=== PATIENT | female | born 1950 | race Caucasian/White ===

== ENCOUNTER 2021-04-23 11:19 | Inpatient (IN) | payer MEDICARE ==
[~2021-04-23] VITALS: Ht 167.6 cm; Wt 60.8 kg
--- NOTE | 2021-04-23 11:25 | NUR ---
pt arrived from [facility]. upon arrival she is wearing a non-rebreather at 8 l/hr. heparin is infusin into a piv at a rate of 12 units/kg/hr.
--- NOTE | 2021-04-23 11:25 | NUR ---
per ptand [facility], [facility] 69.[facility] kg [facility]
--- NOTE | 2021-04-23 11:30 | NUR ---
ERP AT BS FOR EVAL
--- NOTE | 2021-04-23 11:46 | NUR ---
TRAFFIC OFFICER AT FOR EVAL
[2021-04-23] MEDS ORDERED: SIMV20TA19 PO (11:52)
[2021-04-23] MEDS ORDERED: LEVO75TA5 PO (11:53)
[2021-04-23] MEDS ORDERED: PLEASE ENTER HEIGHT AND WEIGHT MC SCH (12:00)
[2021-04-23 12:06] LABS: BASOPHILS % (AUTO) 1 % (0-1); EOSINOPHILS % (AUTO) 0 % (1-7); LYMPHOCYTES % (AUTO) 11 % (22-44); MEAN CORPUSCULAR HEMOGLOBIN 32.5 pg (27.0-34.8); MEAN CORPUSCULAR HGB CONC 34.1 g/dL (32.4-35.8); MEAN PLATELET VOLUME 9.1 fL (7.4-10.4); MONOCYTES % (AUTO) 7 % (2-9); NEUTROPHILS % (AUTO) 81 % (42-75); PLATELET COUNT 302 x10^3/uL (130-400); RED CELL DISTRIBUTION WIDTH 14.1 % (9.6-15.2)
--- NOTE | 2021-04-23 12:09 | NUR ---
verbal sbar was exchanged w carlos AYALA) on the floor for admission. we will begin to prepare for transport at this time.
[2021-04-23 12:16] LABS: ANION GAP 7 mmol/L (5-15); CALCIUM 8.1 mg/dL (8.5-10.1); CHLORIDE 105 mmol/L (98-107); CREATININE 0.56 mg/dL (0.55-1.02)
[2021-04-23 12:17] LABS: INTERNATIONAL NORMALIZED RATIO 1.06 (0.93-1.1); PROTHROMBIN TIME 11.3 Seconds (9.6-11.5)
[2021-04-23] MEDS ORDERED: HEPARIN 5,000 UNITS/ML, 1ML IV ONE (12:30)
[2021-04-23] MEDS ORDERED: HEPARIN 25,000 UNITS/250ML PMX 250 ML IV PRN (12:30)
[2021-04-23] MEDS ORDERED: HEPARIN 5,000 UNITS/ML, 1ML IV PRN (12:30)
[2021-04-23 13:11] VITALS: BP 117/82
[2021-04-23 13:26] VITALS: BP 117/82
[2021-04-23] MEDS: SODIUM CHLORIDE 0.9% 1,000 ML IV SCH (16:57)
[2021-04-23 19:07] VITALS: BP 96/65
[2021-04-23] MEDS: ATORVASTATIN 80 MG TABLET PO SCH (20:22)
[2021-04-23 23:44] VITALS: BP 104/72
[2021-04-24 02:16] LABS: BASOPHILS % (AUTO) 1 % (0-1); EOSINOPHILS % (AUTO) 1 % (1-7); LYMPHOCYTES % (AUTO) 21 % (22-44); MEAN CORPUSCULAR HEMOGLOBIN 32.7 pg (27.0-34.8); MEAN CORPUSCULAR HGB CONC 34.5 g/dL (32.4-35.8); MEAN PLATELET VOLUME 9.2 fL (7.4-10.4); MONOCYTES % (AUTO) 11 % (2-9); NEUTROPHILS % (AUTO) 66 % (42-75); PLATELET COUNT 226 x10^3/uL (130-400); RED BLOOD COUNT 3.91 x10^6/uL (3.82-5.3); RED CELL DISTRIBUTION WIDTH 14.1 % (9.6-15.2)
[2021-04-24 02:27] LABS: ANION GAP 6 mmol/L (5-15); CALCIUM 8.2 mg/dL (8.5-10.1); CHLORIDE 107 mmol/L (98-107); CHOLESTEROL, TOTAL 185 mg/dL (140-239); TRIGLYCERIDES 84 mg/dL (50-200); VLDL CHOLESTEROL 17 mg/dL (0-25)
[2021-04-24 02:29] LABS: CHOL/HDL RATIO 1.8; HDL CHOL % 56 % (28-40); HDL CHOLESTEROL (DIRECT) 103 mg/dL (40-60); LDL CHOLESTEROL,CALCULATED 65 mg/dL (54-169); LDL/HDL RATIO 0.6 (0.5-3.0)
[2021-04-24] MEDS: SODIUM CHLORIDE 0.9% 1,000 ML IV SCH ×5 (06:04→22:37)
[2021-04-24] MEDS: ASPIRIN 81 MG TABLET CHEW PO SCH (06:04)
[2021-04-24 06:42] VITALS: BP 100/66
[2021-04-24] MEDS ORDERED: POTASSIUM CHLORIDE 20 MEQ TAB.ER.PRT PO ONE (07:00)
[2021-04-24] MEDS ORDERED: POTASSIUM CHLORIDE 40 MEQ in SODIUM CHLORIDE 0.9% 500 ML IV ONE (07:00)
[2021-04-24] MEDS ORDERED: VERAPAMIL 2.5 MG/ML, 2ML ONE (11:17)
[2021-04-24] MEDS ORDERED: LIDOCAINE-MPF 1%, 5ML ONE (11:17)
[2021-04-24] MEDS ORDERED: MIDAZOLAM 1 MG/ML, 5ML ONE (11:17)
[2021-04-24] MEDS ORDERED: FENTANYL PF 100 MCG/2ML ONE (11:17)
[2021-04-24] MEDS ORDERED: BIVALIRUDIN 250 MG ONE (11:21)
[2021-04-24 14:58] VITALS: BP 100/61
[2021-04-24 18:58] VITALS: BP 98/65
[2021-04-24] MEDS: ATORVASTATIN 80 MG TABLET PO SCH (20:28)
[2021-04-25 04:03] VITALS: BP 123/84
[2021-04-25 04:15] VITALS: BP 123/84
[2021-04-25] MEDS: ASPIRIN 81 MG TABLET CHEW PO SCH (05:57)
[2021-04-25 06:06] LABS: ANION GAP 6 mmol/L (5-15); CALCIUM 8.4 mg/dL (8.5-10.1); CHLORIDE 111 mmol/L (98-107)
[2021-04-25 06:07] LABS: CREATININE 0.45 mg/dL (0.55-1.02)
[2021-04-25] MEDS ORDERED: SODIUM CHLORIDE NASAL SPRAY 45ML BOTTLE NAS PRN (06:30)
[2021-04-25 06:50] VITALS: BP 109/73
[2021-04-25] MEDS ORDERED: POTASSIUM CHLORIDE 20 MEQ TAB.ER.PRT PO ONE (07:00)
[2021-04-25] MEDS ORDERED: LEVOTHYROXINE 75 MCG TABLET PO SCH (09:00)
[2021-04-25] MEDS ORDERED: CARVEDILOL 3.125 MG TABLET PO SCH (10:00)
[2021-04-25] MEDS ORDERED: CLOPIDOGREL 75 MG TABLET PO SCH (10:00)
[2021-04-25] MEDS: SODIUM CHLORIDE 0.9% 1,000 ML IV SCH (10:33)
[2021-04-25] MEDS ORDERED: ATOR-2 PO (12:00)
[2021-04-25] MEDS ORDERED: CLOP75TA PO (12:00)
[2021-04-25] MEDS ORDERED: ASPI-963 PO (12:00)
[2021-04-25] MEDS ORDERED: METO25TA91 PO (12:00)
[2021-04-25 12:30] VITALS: BP 123/78
[2021-04-25] MEDS ORDERED: METOPROLOL SUCCINATE 25 MG TAB.ER.24H PO SCH (21:00)
== END 2021-04-25 14:40 | disposition home or self-care (01) | DRG 280 ==
LOC: SUATTDRO 11:32 → ED 11:38 → EDIP 12:21 → 5SO 12:40 → DCLOUNGE 04-25 14:23 → UNDODISIN 04-25 14:40
PROVIDERS: ADMIT Family Medicine; ATTEND Family Medicine
PROC: 4A023N7 Measurement of Cardiac Sampling and Pressure, Left Heart, Percutaneous Approach (ICD-10-PCS; principal; 2021-04-24)
PROC: B2111ZZ Fluoroscopy of Multiple Coronary Arteries using Low Osmolar Contrast (ICD-10-PCS; 2021-04-24)
PROC: B2151ZZ Fluoroscopy of Left Heart using Low Osmolar Contrast (ICD-10-PCS; 2021-04-24)
DX: I51.81 Takotsubo syndrome (principal); I21.A1 Myocardial infarction type 2; J96.91 Respiratory failure, unspecified with hypoxia; I50.21 Acute systolic (congestive) heart failure; I95.9 Hypotension, unspecified; E03.9 Hypothyroidism, unspecified; E78.5 Hyperlipidemia, unspecified; E87.6 Hypokalemia; F17.210 Nicotine dependence, cigarettes, uncomplicated; Z91.018 Allergy to other foods; Z79.899 Other long term (current) drug therapy; Z79.01 Long term (current) use of anticoagulants; Z79.82 Long term (current) use of aspirin; Z88.7 Allergy status to serum and vaccine; Z90.710 Acquired absence of both cervix and uterus
CPT/HCPCS: 36415; 71045; 80048; 80061; 83735; 84484; 85025; 85520; 85610; 85730; 93005; 93306; 93458; 93880; 96374; 99156; C1769; C1894; G0378; J0583; J1644; J2250; J3010; J3480; J7030; J7040; Q9967